=== PATIENT | male | born 1960 | race Caucasian/White ===

== ENCOUNTER 2017-11-29 06:44 | Day surgery (SDC) | payer BC ==
[~2017-11-29] VITALS: Ht 175.3 cm; Wt 91.5 kg
[2017-11-29] MEDS ORDERED: NYQUIL GENERIC PO (07:12)
[2017-11-29] MEDS ORDERED: ZANTAC 150150 MG PO (07:13)
[2017-11-29] MEDS ORDERED: DAY QUIL PO (07:14)
[2017-11-29] MEDS ORDERED: ALBUTEROL SULFAT3 M3 IH (07:15)
[2017-11-29 07:30] VITALS: BP 116/78; PULSE 75; TEMP 98.4
[2017-11-29 09:00] VITALS: BP 102/75; PULSE 76; TEMP 97.9
[2017-11-29 09:15] VITALS: BP 100/86; PULSE 64
[2017-11-29 09:30] VITALS: BP 97/75; PULSE 63
[2017-11-29] MEDS ORDERED: PRILOTC (09:30)
== END 2017-11-29 09:49 | disposition home or self-care (01) ==
LOC: SDCO 06:44
DX: K21.0 Gastro-esophageal reflux disease with esophagitis (principal); Z12.11 Encounter for screening for malignant neoplasm of colon; K29.30 Chronic superficial gastritis without bleeding; K29.80 Duodenitis without bleeding; Z88.0 Allergy status to penicillin; Z79.82 Long term (current) use of aspirin
CPT/HCPCS: OP; J2250; J3010; J7030

== ENCOUNTER 2018-12-19 06:38 | Day surgery (SDC) | payer OTHER ==
[~2018-12-19] VITALS: Ht 175.3 cm; Wt 87.9 kg
[~2018-12-19 06:38] MED LIST: ALBUTEROL SULFAT3 M3 IH; DAY QUIL PO; NYQUIL GENERIC PO; PRILOTC; ZANTAC 150150 MG PO
[2018-12-19 07:15] VITALS: BP 110/75; PULSE 62; TEMP 97.9
[2018-12-19 08:00] VITALS: BP 103/75; PULSE 62; TEMP 98.1
--- NOTE | 2018-12-19 08:00 | NUR ---
Pt to [facility] via cart from ENDO. Pt drowsy, but awake. Pt ambulates to recliner with stand by assistance. Warm blanket given. Pt denies pain or nausea. Pudding and juice provided. Will continue to monitor. Call light within reach.
[2018-12-19 08:15] VITALS: BP 95/67; PULSE 55
--- NOTE | 2018-12-19 08:15 | NUR ---
Pt tolerating food and fluids without difficulties. Will continue to monitor. Call light within reach.
[2018-12-19 08:30] VITALS: BP 102/66; PULSE 56
--- NOTE | 2018-12-19 08:30 | NUR ---
Son in room. Pt denies nausea or pain. Will continue to monitor.
--- NOTE | 2018-12-19 08:45 | NUR ---
Discharge instructions reviewed. Pt voices understanding. IV site discontinued with all parts intact. Pt up to dress. Call light within reach.
--- NOTE | 2018-12-19 08:55 | NUR ---
Pt escorted to private car via wheel chair. Pt accompanied home by his son.
== END 2018-12-19 08:55 | disposition home or self-care (01) ==
LOC: SDCO 06:38
DX: K21.9 Gastro-esophageal reflux disease without esophagitis (principal); K22.70 Barrett's esophagus without dysplasia; Z88.1 Allergy status to other antibiotic agents; Z79.82 Long term (current) use of aspirin; Z80.0 Family history of malignant neoplasm of digestive organs
CPT/HCPCS: OP; J2250; J3010; J7030

== ENCOUNTER 2021-07-09 11:39 | Emergency (ER) | payer OTHER ==
[~2021-07-09] VITALS: Ht 177.8 cm; Wt 89.1 kg
[2021-07-09 12:09] VITALS: BP 118/74; PULSE 61; TEMP 98.4
== END 2021-07-09 14:07 | disposition home or self-care (01) ==
LOC: COL.ER 11:39
DX: S81.011A Laceration without foreign body, right knee, initial encounter (principal); K21.9 Gastro-esophageal reflux disease without esophagitis; Z79.899 Other long term (current) drug therapy; W01.198A Fall on same level from slipping, tripping and stumbling with subsequent striking against other object, initial encounter; Y92.007 Garden or yard of unspecified non-institutional (private) residence as the place of occurrence of the external cause

== ENCOUNTER 2021-07-21 07:47 | Emergency (ER) | payer OTHER ==
[2021-07-21 08:32] VITALS: BP 115/73; PULSE 63; TEMP 98.4
== END 2021-07-21 08:32 | disposition home or self-care (01) ==
LOC: COL.ER 07:47
DX: Z48.02 Encounter for removal of sutures (principal)